=== PATIENT | male | born 2000 | race Caucasian/White ===

== ENCOUNTER 2019-03-28 07:47 | Emergency (ER) | payer SELFPAY ==
[~2019-03-28] VITALS: Ht 160 cm; Wt 52.0 kg
[2019-03-28 08:02] VITALS: BP 108/53
--- NOTE | 2019-03-28 08:35 | NUR ---
CHARGE NURSE: PT CALLED IN LOBBY, NO ANSWER
--- NOTE | 2019-03-28 08:55 | NUR ---
AUTOMATIC CLIPPER: PT TO ROOM FROM LOBBY
--- NOTE | 2019-03-28 10:30 | NUR ---
PT UP TO RESTROOM WITH STRONG, STEADY GAIT. DENIES ANY NEEDS OR CONCERNS AT THIS TIME. URINE SAMPLE PROVIDED AND SENT.
[2019-03-28 11:08] LABS: MICROSCOPIC AUTO
[2019-03-28 11:16] LABS: CULTURE INDICATED? YES
== END 2019-03-28 12:42 | disposition home or self-care (01) ==
LOC: ED 10:43
DX: R30.0 Dysuria (principal); F17.200 Nicotine dependence, unspecified, uncomplicated
CPT/HCPCS: 81001; 87086; 87491; 87591; 99283

== ENCOUNTER 2019-03-29 19:36 | Emergency (ER) | payer OTHER ==
[~2019-03-29] VITALS: Ht 162.6 cm; Wt 49.8 kg
[2019-03-29 19:49] VITALS: BP 118/80
[2019-03-29] MEDS ORDERED: IBUPROFEN 200 MG TABLET PO ONE (20:30)
[2019-03-29] MEDS ORDERED: IBUPROFEN 200 MG TABLET ONE (20:36)
--- NOTE | 2019-03-29 20:41 | NUR ---
PT MEDICATED PER MAR
== END 2019-03-29 22:03 | disposition home or self-care (01) ==
LOC: ED 20:25
DX: S29.012A Strain of muscle and tendon of back wall of thorax, initial encounter (principal); F17.210 Nicotine dependence, cigarettes, uncomplicated; X58.XXXA Exposure to other specified factors, initial encounter; Y93.89 Activity, other specified; Y92.89 Other specified places as the place of occurrence of the external cause; Y99.8 Other external cause status
CPT/HCPCS: 99283